=== PATIENT | male | born 1990 | race African-American/Black ===

== ENCOUNTER 2023-09-02 06:20 | Emergency (ER) | payer OTHER, SELFPAY ==
--- NOTE | ~2023-09-02 | XR_ITS ---
EXAMINATION: XR FOOT, RIGHT CLINICAL INFORMATION: Pain COMPARISON: None available. TECHNIQUE: AP, lateral, and oblique views of the right foot. FINDINGS: Negative for acute fracture or dislocation. XR/XR foot RT 2V IMPRESSION: There is bony density in the region of the arrow pointing to the region of pain and there is some bony prominence here. Etiology is indeterminate. This could represent fracture fragment or a bony anomaly or sequela of previous injury versus abnormal patient position or bony lesion. Correlation recommended clinically. 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 Differential given above. Consider CT to fully evaluate
--- NOTE | ~2023-09-02 | XR_ITS ---
EXAMINATION: XR ANKLE, RIGHT CLINICAL INFORMATION: Posterior tenderness COMPARISON: None available. TECHNIQUE: AP, lateral, and mortise views of the right ankle. FINDINGS: No fracture. Alignment is anatomic. No erosions. Joint spaces are maintained. Soft tissues are normal. XR/XR ankle RT 2V IMPRESSION: Normal right ankle.
[2023-09-02 06:40] VITALS: BP 145/73; PULSE 64; RESP 16; TEMP 36.4; O2SAT 99; BMI 26.3
--- NOTE | 2023-09-02 07:16 | ED.LOWEXIN ---
HPI - Extremity Injury (Lower) General Chief Complaint: Extremity Injury, Lower Stated Complaint: fall, leg/foot inj Time Seen by Provider: 09/02/23 07:12 Source: patient Mode of arrival: ambulatory Limitations: no limitations History of Present Illness HPI Narrative: Patient is a 32-year-old male presenting to the emergency department with complaint of right posterior ankle pain. Reports that he tripped on the curb while walking into his apartment after work at 5:00 a.m. this morning. Denies any weakness, numbness, tingling. States pain radiates up to mid lower leg. Did not take any over the counter medications prior to arrival. complaint: ankle injury Onset (ago): hour(s) Injury: Right: ankle Type of Injury: unknown Place: home Severity: severe Relieving factors: rest Exacerbating factors: movement and palpation Context: fall Other symptoms: none Treatments prior to arrival: cold therapy Related Data Allergies Allergy/AdvReac Type Severity Reaction Status Date / Time amoxicillin Allergy Hives Verified 09/02/23 06:40 Review of Systems Review of Systems: As per HPI. Yes all other systems are reviewed and are negative Constitutional: Constitutional: Reports as per HPI [facility] Social History Social History Alcohol intake: current Alcohol intake frequency: holidays/special occasions only Smoked in Last 30 Days: Yes Use of substances other than those prescribed or required for medical reasons: Yes Substance Use Type: Marijuana Substance Use Frequency: Daily Last Used Substance: Just Prior to Admission Advance Directives: No Advance Directives Information Provided: No Physical Exam Vital Signs: Vital Signs: Last Vital Signs Temp 97.5 F 09/02/23 06:40 Pulse 64 09/02/23 06:40 Resp 16 09/02/23 06:40 BP 145/73 H 09/02/23 06:40 Pulse Ox 99 09/02/23 06:40 O2 Del Method Room Air 09/02/23 06:40 BMI result Body Mass Index 26.3 Vital signs have been reviewed and appear to be correct. Blood pressure mildly elevated. Heart rate normal. Respiratory rate normal. Temperature normal. Oxygen saturation normal. Const: General: cooperative, healthy appearing and no acute distress Orientation/consciousness: oriented to person, oriented to place, oriented to time and patient oriented x3 Limitations: no limitations HEENT: Head: Yes normocephalic and Yes atraumatic Ears: external ears normal General nose exam: Normal external nose present Face and sinus: Yes face symmetric Mouth: oropharynx normal and moist mucous membranes Throat: Yes uvula midline Eyes: Pupils: Equal, round and reactive pupils present Neck: Neck: Yes normal visual inspection and Yes supple Resp: Effort & Inspection: normal respiratory effort and able to speak in complete sentences Auscultation: clear to auscultation bilaterally Cardio: Rate: regular rate Rhythm: regular rhythm Heart sounds: S1 normal heart sound present and S2 normal heart sound present GI: Palpation (GI): Soft to palpation and nontender Auscultation: normoactive bowel sounds : General: Yes no CVA tenderness Back/Spine/Pelvis: Back: no CVA tenderness Skin: General skin exam: elasticity normal and turgor normal Neuro: General: oriented to person, oriented to place, oriented to time, patient oriented x3, moves all extremities, no focal motor deficits and CN's II-XI intact bilaterally Cranial nerves: Yes Equal, round and reactive pupils present Cognition (Neuro): normal cognition Extrem: General: Yes full ROM, Yes no pedal edema and Yes no calf tenderness Right lower extremity: ankle Details: normal to inspection, tenderness Location: of the achilles tendon, normal ROM and achilles tendon exam abnormal Details: tenderness to palpation of achilles tendon; no step-off noted and Rizzo Test normal; no swelling, no unusual warmth, no ecchymosis and no crepitus and foot Details: normal capillary refill, normal to inspection, toes with normal ROM, vascular exam Details: dorsalis pedis pulse present and posterior tibial pulse present and motor-sensory exam Details: light-touch normal; no tenderness, no unusual warmth and no ecchymosis Psych: Mental Status: mental status grossly normal Affect: normal affect Thought process: Normal thought process present Medications Administered Discontinued Medications Generic Name Dose Route Start Last Admin Trade Name Freq PRN Reason Stop Dose Admin Acetaminophen 975 mg 09/02/23 07:21 09/02/23 07:34 Acetaminophen 325 Mg Tablet PO 09/02/23 07:22 975 mg ONCE ONE Administration Ibuprofen 600 mg 09/02/23 07:21 09/02/23 07:35 Ibuprofen 600 Mg Tablet PO 09/02/23 07:22 600 mg ONCE ONE Administration Medical Decision Making Medical Decision Making MDM Narrative: Patient is a 32-year-old male presenting to the emergency department with complaint of right posterior ankle pain. On exam patient is awake, A+Ox3, VS WNL, afebrile, normal neurological exam without focal deficits, physical exam findings as above. Given reported symptoms and physical exam findings, initial differential includes right ankle strain, sprain, fracture. Unlikely achilles tendon rupture. X-ray foot and ankle notable for no acute fracture. My interpretation is in agreement with the radiologist's interpretation. Will place patient in stirrup splint, and provide crutches with crutch teaching. Will refer to ortho further evaluation and management. Advised patient to alternate Tylenol ibuprofen, elevate foot at rest and apply ice intermittently. Return precautions discussed. Patient verbalized understanding of and agreement with plan. Differential Diagnosis Differential Diagnoses: The differential diagnosis associated with the presentation includes As per MDM. Independent Interpretation I performed an independent interpretation of an: Plain X-Ray Interpretation: No evidence of acute right ankle fracture Radiology Impression Discussion of test interpretation with radiology: I have reviewed the radiologist's reading. Radiologist Impression: XR/XR ankle RT 2V IMPRESSION: Normal right ankle. XR/XR foot RT 2V IMPRESSION: There is bony density in the region of the arrow pointing to the region of pain and there is some bony prominence here. Etiology is indeterminate. This could represent fracture fragment or a bony anomaly or sequela of previous injury versus abnormal patient position or bony lesion. Correlation recommended clinically. 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 Differential given above. Consider CT to fully evaluate External Record Review External record reviewed: Inpatient record, Office record and Outpatient record Discharge Plan Discharge Clinical Impression: Ankle sprain and strain Patient Disposition: Home, Self-Care Instructions: Ankle Sprain (DC), Crutch Instructions (ED), Ankle Stirrup Splint (ED), R.I.C.E. Treatment (ED) Additional Instructions: You have been evaluated in the emergency department today for ankle pain. Your evaluation did not find evidence of medical conditions requiring emergent intervention at this time. We have provided a splint and crutches for you to use while your ankle heals. Please rest, ice, and elevate your ankle, and resume normal activities as tolerated. You are being referred to orthopedics for further evaluation and management, please call their office to schedule an appointment. We recommend you take 600mg ibuprofen every 6 hours or 650mg Tylenol every 6 hours as needed for pain. If needed you can alternate these medications as they take 1 medication every 3 hours. For instance at noon take ibuprofen, then at 3:00 p.m. take Tylenol, then at 6:00 p.m. take ibuprofen. Please schedule an appointment for follow-up with your primary care provider this week. Return to the emergency department if you experience worsening pain, numbness, tingling, change of color in your foot, or any other concerning symptoms. Referrals: [facility] [Provider Group] Stand Alone Forms: Work/School Release
[2023-09-02] MEDS: Acetaminophen 325 MG TABLET 975 MG PO (07:34)
[2023-09-02] MEDS: Ibuprofen 600 MG TABLET PO (07:35)
[2023-09-02 08:36] VITALS: BP 115/53; PULSE 86; RESP 14; TEMP 36.9; O2SAT 98
== END 2023-09-02 09:10 | disposition home or self-care (01) ==
PROVIDERS: Emergency Provider Emergency Medicine
DX: S93.401A Sprain of unspecified ligament of right ankle, initial encounter (principal); S96.911A Strain of unspecified muscle and tendon at ankle and foot level, right foot, initial encounter; W10.1XXA Fall (on)(from) sidewalk curb, initial encounter; Y93.01 Activity, walking, marching and hiking; Y92.480 Sidewalk as the place of occurrence of the external cause; Y99.9 Unspecified external cause status
CPT/HCPCS: 73600; 73620; 99283; 99284

== ENCOUNTER 2023-10-16 07:57 | Emergency (ER) | payer OTHER, SELFPAY ==
[2023-10-16 07:58] VITALS: BP 166/86; PULSE 97; RESP 18; TEMP 36.5; O2SAT 99; BMI 27.1
--- NOTE | 2023-10-16 08:20 | PC.NURSE ---
a&ox4. vss and up to date. nsr on the media monitor. pt presents to the ED w/ priapism x 4 hours. pt verbalizes using OTC medication to induce erection last tuesday. pt states having sexual relations w/ same partner all week and has not had any issue until this morning. pt seemingly anxious. pt spoke w/ ED provider in regards to future plans at this time. plan of care ongoing.
--- NOTE | 2023-10-16 08:34 | ED_ITS ---
HPI - Male Genitourinary General Chief complaint: Urogenital-Male Stated complaint: Genital issues Time Seen by Provider: 10/16/23 08:14 Source: patient Mode of arrival: ambulatory Limitations: no limitations History of Present Illness HPI Narrative: This is a 32-year-old male presenting to the emergency department with a painful erection that started at 4 in the morning. Patient reports it is extremely hard and very painful. Patient reports that last Tuesday ( 8 days ago) he took an [id number] erectile supplement called [place] honey that has a medicine in it to help with erections. However has not taken it since. Patient denies drug use, cocaine use, psych medicine. Patient has been having sex with the same partner for the past week, unsure of STD. Related Data Allergies Allergy/AdvReac Type Severity Reaction Status Date / Time amoxicillin Allergy Hives Verified 09/02/23 06:40 Review of Systems Review of Systems: Yes all other systems are reviewed and are negative PMFSH Past Medical History Attestation statement: The following information was validated with the patient. Source: old records reviewed and nursing notes reviewed Social History Social History Alcohol intake: current Alcohol intake frequency: a few times a week Smoked in Last 30 Days: No Use of substances other than those prescribed or required for medical reasons: Yes Substance Use Type: Marijuana Advance Directives: No Advance Directives Information Provided: No Physical Exam Vital Signs: Vital Signs: Last Vital Signs Temp 98.5 F 10/16/23 11:16 Pulse 74 10/16/23 11:16 Resp 18 10/16/23 11:16 BP 134/80 10/16/23 11:16 Pulse Ox 99 10/16/23 11:16 O2 Del Method Room Air 10/16/23 11:16 BMI result Body Mass Index 27.1 vss Appearance: Alert.? Oriented X3.? No acute distress.? Head: Normocephalic, atraumatic, no step-offs or deformities Eyes: Pupils equal, round and reactive to light.? CVS: Normal heart rate and rhythm.? Pulses normal.? Respiratory: No respiratory distress.? Breath sounds normal.? Abdomen: Soft and nontender.? Skin: Skin warm and dry.? Normal skin color.? Normal skin turgor.? Extremities: No lower extremity edema.? No calf ttp. 5/5 strength to bilateral upper and lower extremities Sensative exam: ( Jordi conteh at bedside) erect penis shaft much harder than the glans. Glans somewhat soft. No discoloration. Decreased sensation distally. However TTP over the majority of the shaft of the penis. Neuro: Oriented X 3.? No motor deficit.? No sensory deficit. CN 2-12 intact Course Reevaluation(s) Reevaluation #1: Urology Dr. Hines recommends 20 cc of saline w/ phenylepherine 10mg/ml (1ml) to be injected 1 cc at a time every 10-15 minutes. At bedside to explain procedure I obtained verbal consent form patient explained risks bleeding, pain, necrosis, nerve issues, sensory issues, cardiac changes w/ med he verbalizes understanding. Sheryl Friedman RN at bedside. Time out confirmed patient, procedure, dose and location of injection. 1ml of diluted phenylepharine injected w/ a 25 G needle at the 3 ocklock position 3 cm from the base of the penis into the corpus cavernosum, aspiration to confirm position --> injected the diluted phenylephrine NSR before and after the procedure no noted cardiac changes. Patient tolerated procedure well. Time: 09:35 Reevaluation #2: Patient pain free. No longer has erections Time: 09:56 Reevaluation #3: Patient feeling much better pain-free. No hematoma or abnormalities at the site. Patient's erection resolved. Soft penile shaft and glans penis. I will have him follow-up with urology. Educated him to stop using royal honey. Educated patient on diagnosis and treatment plan, answered all question, patient verbalizes understanding. At this time patient will be discharged home, advised to return with new or worsening symptoms. Educated on worrisome signs and symptoms and when to return. At this time I feel comfortable discharge home. Time: 11:22 Medications Administered Discontinued Medications Generic Name Dose Route Start Last Admin Trade Name Clive PRN Reason Stop Dose Admin Phenylephrine HCl 0 mg 10/16/23 08:19 10/16/23 09:04 Phenylephrine Hcl 10 Mg/Ml Vial INTRACAVER 10/16/23 08:20 Not Given ONCE ONE Phenylephrine HCl 0 mg 10/16/23 09:00 10/16/23 09:05 Phenylephrine Hcl 10 Mg/Ml Vial INTRACAVER 10/16/23 09:01 10 mg ONCE ONE Administration Protocol Medical Decision Making Medical Decision Making [facility] Narrative: 0805 32 year old male presents for priapism X 4 hours PE errect penis Concerns for drug induced priapism. And possible necrosis has patient's glans is much softer than the shaft. Will rule out UTI and STDs Plan at this time Urology at bedside with me to evaluate patient. Differential Diagnosis Differential Diagnoses: The differential diagnosis associated with the presentation includes Concerns for drug induced priapism. And possible necrosis has patient's glans is much softer than the shaft. Will rule out UTI and STDs Admission/Observation Consideration of admission/observation: Escalation of care including admission/observation considered possible Consult Healthcare Provider Management of the patient was discussed with: Laboratory Secretary (Urology ) Lab Data [facility] Lab Attestation statement: I reviewed the patient's lab results. Labs: Lab Results 10/16/23 Range/Units 09:50 Urine Color Yellow Urine Appearance Clear Urine pH 8.5 (5.0-9.0) Ur Specific [place] 1.020 (1.005-1.025) Urine Protein Negative (Neg-Trace) mg/dL Urine Glucose (UA) Negative (Negative) mg/dL Urine Ketones Negative (Negative) mg/dL Urine Blood Negative (Negative) Urine Nitrite Negative (Negative) Ur Leukocyte Esterase Negative (Negative) External Record Review External record reviewed: Office record and Outpatient record Prescription Management Ibuprofen every 6 hours Tylenol every 4 as needed for pain or discomfort. Not to exceed maximum daily dose as listed on packaging Chronic Conditions Patient?s care impacted by: Other (Marijuanna smoker ) Critical Care Time Critical Care Time Critical Care Time: Yes Total Critical Care Time: 60 Attestation: I attest to this time spent taking care of the patient, obtaining history, physical, reviewing labs, imaging, speaking to my attending, speaking to specialist. Discharge Plan Discharge Clinical Impression: Priapism Patient Disposition: Home, Self-Care Instructions: Priapism (ED) Additional Instructions: Take your medications as prescribed. If you were prescribed antibiotics today, it is important that you take your medication to their entirety, do not skip any doses, do not finish them early. Follow-up with your primary care provider this week. Return to the emergency department with new or worsening symptoms. Such as fevers, chills, chest pain, shortness of breath, nausea, vomiting, dizziness, headache, vision changes, lethargy In case of emergency call 911 Ibuprofen every 6 hours Tylenol every 4 as needed for pain or discomfort. Not to exceed maximum daily dose as listed on packaging Referrals: [facility] [Provider Group] - 1 week Physician,None [Primary Care Provider] - 2 days
[2023-10-16 08:47] VITALS: BP 145/79; PULSE 88; RESP 18; TEMP 37.1; O2SAT 98
--- NOTE | 2023-10-16 08:59 | PM.UROCN ---
History of Present Illness Consult details Consult date: 10/16/23 Narrative: CC: Priapism Priapism lasting since 04:00 On examination has priapism of bilateral corpora Soft glans Reports using royal jelly product Likely laced with pharmaceuticals Recommend corporal aspiration to check blood gas for confirmation Injection of phenylephrine 500 mcg Q 15 minute Review of Systems Constitutional: Constitutional: Reports as per HPI and Reports no additional constitutional complaints Cardiovascular: Cardiovascular: Reports as per HPI and Reports no additional cardiovascular complaints Respiratory: Respiratory: Reports as per HPI and Reports no additional respiratory complaints Gastrointestinal: Gastrointestinal: Reports as per HPI and Reports no additional gastrointestinal complaints Genitourinary: Genitourinary: Reports as per HPI Musculoskeletal: Musculoskeletal: Reports no additional musculoskeletal complaints and Reports as per HPI Neurologic: Reports system reviewed and no additional complaints, except as documented and Reports as per HPI [facility] Social History Social History Alcohol intake: current Alcohol intake frequency: a few times a week Smoked in Last 30 Days: No Use of substances other than those prescribed or required for medical reasons: Yes Substance Use Type: Marijuana Advance Directives: No Advance Directives Information Provided: No Meds Allergies Allergy/AdvReac Type Severity Reaction Status Date / Time amoxicillin Allergy Hives Verified 09/02/23 06:40 Active Medications: Current Medications Phenylephrine HCl (Phenylephrine Hcl 10 Mg/Ml Vial) 0 mg INTRACAVER ONCE ONE; Protocol Stop: 10/16/23 09:01 Physical Exam Vital Signs: Vital Signs: Last Vital Signs Temp 98.7 F 10/16/23 08:47 Pulse 88 10/16/23 08:47 Resp 18 10/16/23 08:47 BP 145/79 H 10/16/23 08:47 Pulse Ox 98 10/16/23 08:47 O2 Del Method Room Air 10/16/23 08:47 BMI result Body Mass Index 27.1 Const: General: cooperative, healthy appearing, comfortable and no acute distress Orientation/consciousness: patient oriented x3 HEENT: Face and sinus: Yes normal facial exam Mouth: moist mucous membranes Neck: Neck: Yes normal visual inspection, Yes full ROM and Yes trachea midline Chest: Chest palpation & inspection: normal inspection of the chest Resp: Effort & Inspection: normal respiratory effort, able to speak in complete sentences and no respiratory distress GI: Inspection: Yes normal to inspection Back/Spine/Pelvis: Cervical Spine: normal cervical lordosis Thoracic/Lumbar Spine: thoracic and lumbar spine normal to inspection Skin: General skin exam: no rashes or lesions noted Neuro: General: patient oriented x3, tone normal and moves all extremities Extrem: General: Yes normal to inspection and Yes capillary refill normal Results Labs Labs: All other labs normal. Assessment and Plan (1) Priapism: Status: Acute Plan Initial therapy injection of vaso-constricting medication Procedures Date of Service Date of Service: 10/16/23
[2023-10-16 09:05] VITALS: BP 109/87; PULSE 87
[2023-10-16] MEDS: Phenylephrine HCL 10 MG/ML VIAL INTRACAVER (09:05)
--- NOTE | 2023-10-16 09:05 | PC.NURSE ---
1st dose of phenylephrine administered per julisa FAROOQ at this time. sinus tachy on the roller repairer 100-110bpm. pt tolerated well.
--- NOTE | 2023-10-16 09:16 | PC.NURSE ---
penile erection subsided post 1st dose of medication administration. pt remains nsr on the surveillance system monitor. respirations remain even and unlabored. call ricks placed within reach.
[2023-10-16 09:36] VITALS: BP 126/66; PULSE 71; RESP 14; TEMP 36.9; O2SAT 96
--- NOTE | 2023-10-16 09:41 | PC.NURSE ---
pt ambulates to the restroom w/ a strong/steady gait independently. urine sample/obtained and sent to the lab. pt able to urinate without complications. denies pain/hematuria/discharge/etc. pt states he is feeling much better at this time. respirations remain even and unlabored. call ricks placed within reach.
[2023-10-16 09:58] LABS: Appearance Urine Clear; Color Urine Yellow; Glucose Urine UA Negative (Negative); Leukocyte Esterase Urine Negative (Negative); Nitrite Urine Negative (Negative); PH 8.5 (5.0-9.0); Urine Blood Negative (Negative); Urine Ketones Negative (Negative); Urine Protein Negative (Neg-Trace)
[2023-10-16 11:16] VITALS: BP 134/80; PULSE 74; RESP 18; TEMP 36.9; O2SAT 99
== END 2023-10-16 11:38 | disposition home or self-care (01) ==
PROVIDERS: Physician Assistant; Emergency Provider Student in an Organized Health Care Education/Training Program
DX: N48.30 Priapism, unspecified (principal); N48.89 Other specified disorders of penis
CPT/HCPCS: 81003; 99284; J2371

== ENCOUNTER → 2023-10-16 08:27 | Outpatient (BNV) | payer OTHER, SELFPAY | PROVIDERS: Visit Provider Urology | DX: N48.30 Priapism, unspecified (principal) | CPT/HCPCS: 99284 ==

== ENCOUNTER 2024-03-22 11:10 | Emergency (ER) | payer OTHER, SELFPAY ==
--- NOTE | ~2024-03-22 | US_ITS ---
EXAMINATION: US SCROTUM CLINICAL INFORMATION: Right testicle is red and swollen. COMPARISON: None available. TECHNIQUE: A sonogram of the scrotum was performed assessing dash-scale appearance and color Doppler flow. Spectral Doppler analysis of the arterial and venous flow were performed in the testes bilaterally. FINDINGS: RIGHT: Right testicle measures 4.5 x 2.4 x 3.0 cm, volume 16.6 mL. No focal testicular parenchymal lesions are visualized. A single tiny punctate calcific foci is present. Spectral Doppler analysis of the arterial and venous flow is slightly increased in the right testis. Right epididymal head is normal in size. No right hydrocele or varicocele is seen. Right epididymal Doppler flow is increased. LEFT: Left testicle measures 4.1 x 1.8 x 2.6 cm, volume 10.4 mL. No focal testicular parenchymal lesions are visualized. Spectral Doppler analysis of the arterial and venous flow is mildly increased in the left testis. Left epididymal head is normal in size. No left hydrocele or varicocele is seen. Left epididymal Doppler flow is normal. US/US scrotum doppler IMPRESSION: Increased flow in the right testis and epididymis with mildly increased flow in the left testis. Findings are suggestive of mild epididymoorchitis.
--- NOTE | ~2024-03-22 | US_ITS ---
EXAMINATION: US SCROTUM CLINICAL INFORMATION: Right testicle is red and swollen. COMPARISON: None available. TECHNIQUE: A sonogram of the scrotum was performed assessing dash-scale appearance and color Doppler flow. Spectral Doppler analysis of the arterial and venous flow were performed in the testes bilaterally. FINDINGS: RIGHT: Right testicle measures 4.5 x 2.4 x 3.0 cm, volume 16.6 mL. No focal testicular parenchymal lesions are visualized. A single tiny punctate calcific foci is present. Spectral Doppler analysis of the arterial and venous flow is slightly increased in the right testis. Right epididymal head is normal in size. No right hydrocele or varicocele is seen. Right epididymal Doppler flow is increased. LEFT: Left testicle measures 4.1 x 1.8 x 2.6 cm, volume 10.4 mL. No focal testicular parenchymal lesions are visualized. Spectral Doppler analysis of the arterial and venous flow is mildly increased in the left testis. Left epididymal head is normal in size. No left hydrocele or varicocele is seen. Left epididymal Doppler flow is normal. US/US scrotum IMPRESSION: Increased flow in the right testis and epididymis with mildly increased flow in the left testis. Findings are suggestive of mild epididymoorchitis.
[2024-03-22 11:53] VITALS: BP 135/78; PULSE 74; RESP 16; TEMP 36.8; O2SAT 97; BMI 26.5
--- NOTE | 2024-03-22 11:53 | ED.MALEGU ---
HPI - Male Genitourinary General Chief complaint: Urogenital-Male Stated complaint: groin area issues Time Seen by Provider: 03/22/24 12:22 Source: patient Mode of arrival: ambulatory Limitations: no limitations History of Present Illness ED Provider: Cesar Man PA-C HPI Narrative: 33 yo male presents to the ER for evaluation of right testicular swelling for the last 1 day. Patient states about 4 days ago he had an ingrown hair on the right testicle that he popped at home, draining some purulent material and blood from the area. He states it started to heal but then he noticed some swelling in the right testicle yesterday when he was at work. He reports it is tender to touch. He denies any redness or rash to the area. No penile drainage. No pain with urination. He is not diabetic. No fever or chills. MD Complaint: testicle pain and testicle swelling Onset (ago): day(s) (1) Duration: constant Radiation: right testicle Severity: moderate Quality: aching Relieving factors: none Exacerbating factors: palpation Associated symptoms: Reports swelling and mass Related Data Sexually active: Yes (Same partner) Previous Rx's ?Medication ?Instructions ?Recorded doxycycline hyclate 100 mg tablet 100 mg PO BID #19 tabs 03/22/24 Allergies Allergy/AdvReac Type Severity Reaction Status Date / Time amoxicillin Allergy Hives Verified 03/22/24 11:55 Review of Systems Review of Systems: Yes all other systems are reviewed and are negative [facility] Social History Social History Alcohol intake: current Alcohol intake frequency: a few times a week Substance Use Type: Marijuana Advance Directives: No Physical Exam Vital Signs: Vital Signs: Last Vital Signs Temp 98.3 F 03/22/24 15:17 Pulse 74 03/22/24 15:17 Resp 16 03/22/24 15:17 BP 135/78 03/22/24 15:17 Pulse Ox 97 03/22/24 15:17 O2 Del Method Room Air 03/22/24 15:17 BMI result Body Mass Index 26.5 Appearance: Alert. Oriented X3. No acute distress. HEENT: Normal external inspection Neck: Normal inspection. CVS: Normal heart rate and rhythm. Pulses normal. Respiratory: No respiratory distress. Breath sounds normal. Abdomen: Soft and nontender. +BS x4 : Normal inspection of the penis, uncircumcised, no urethral meatus discharge. Normal inspection of the scrotum with a small, less than 1 cm area of swelling around the hair follicle with mild erythema, no fluctuation or induration. Right epididymis is swollen and tender, nontender testicles bilaterally Skin: Skin warm and dry. Normal skin color. Normal skin turgor. No rashes. Extremities: No lower extremity edema. No joint swelling. Neuro/psych: Oriented X 3. Grossly normal, nonfocal Course Course Course Narrative: This is a Rapid Medical Examination (RME) performed by Neris Kline PA-C in triage. Full HPI, ROS, assessment and treatment plan per primary provider in the Main ED. 33 yo male here for eval of right testicular swelling x 24 hours. reports plucking an ingrown hair on the testicle 3-4 days ago. began to noticed swelling, redness, warmth to the testicle last night, pain now spreading to thigh. no fever/ chills, dysuria, penile discharge. + area not examined in triage Plan: labs, UA, ultrasound Medications Administered Discontinued Medications Generic Name Dose Route Start Last Admin Trade Name Freq PRN Reason Stop Dose Admin Ceftriaxone Sodium 500 mg/ 0 mg 03/22/24 14:28 03/22/24 14:42 Lidocaine HCl 1 ml IM 03/22/24 14:29 1 kit ONCE ONE Administration Doxycycline Monohydrate 100 mg 03/22/24 14:28 03/22/24 14:42 Doxycycline Monohydrate 100 Mg Capsule PO 03/22/24 14:29 100 mg ONCE ONE Administration Medical Decision Making Medical Decision Making [facility] Narrative: 33-year-old male presents to the ER for evaluation of right testicular swelling and pain after he had an ingrown hair 4 days ago. Exam is consistent with a tender and swollen epididymis on the right side. No evidence of cellulitis. He is not diabetic, no evidence of Heide gangrene. Has a mild single folliculitis with no purulent drainage. Ultrasound of the testicles today showed mild epididymoorchitis. His UA is negative for infection. His lab work showed no leukocytosis. He denies any urethral discharge. He has been sexually active with the same partner, low suspicion for STIs. Given his age will treat for possible gonorrhea and chlamydia. IM Rocephin given here and will prescribe 10 days of doxycycline. Patient counseled on diagnosis, treatment, management and return precautions. Stable for discharge home Differential Diagnosis Differential Diagnoses: The differential diagnosis associated with the presentation includes Folliculitis, epididymitis, orchitis, epididymoorchitis, chlamydia, gonorrhea, UTI, Heide gangrene Lab Data MDM Lab Attestation statement: I reviewed the patient's lab results. No leukocytosis, urinalysis negative for infection 03/22/24 13:21 03/22/24 13:21 Labs: Lab Results 03/22/24 Range/Units 13:21 WBC 8.7 (4.8-10.8) X10*3/uL RBC 5.33 (4.60-5.80) X10*6/uL Hgb 16.1 (14.0-18.0) g/dl Hct 45.8 (42.0-52.0) % MCV 85.9 (80.0-98.0) fL MCH 30.2 (27.0-33.0) pg MCHC 35.2 (31.0-36.0) g/dl RDW 12.2 (11.0-16.0) % Plt Count 314 (160-400) X10*3/uL MPV 8.8 L (9.4-12.4) fL Immature Gran % (Auto) 0.3 (0.0-0.4) % Neut % (Auto) 60.7 (45-73) % Lymph % (Auto) 28.0 (20-40) % [place] % (Auto) 9.0 (2-11) % Eos % (Auto) 1.8 (0-4) % Baso % (Auto) 0.2 (0-2) % Lymph # (Auto) 2.4 (1.2-4.9) X10*3/uL [place] # (Auto) 0.8 (0.1-1.2) X10*3/uL Eos # (Auto) 0.2 (0.0-0.4) X10*3/uL Baso # (Auto) 0.0 (0.0-0.2) X10*3/uL Abs Immat Gran (auto) 0.03 (0.00-0.03) X10*3/uL Absolute Neuts (auto) 5.3 (2.0-8.3) x10*3/uL Absolute Nucleated RBC 0.000 (0.0-0.012) X10*3/uL Nucleated RBC % (auto) 0.0 (0.0-0.2) /100WBC Sodium 138 (135-145) mmol/L Potassium 3.9 (3.3-5.1) mmol/L Chloride 106 (96-108) mmol/L Carbon Dioxide 26 (22-29) mmol/L Anion Gap 10 L (12-20) BUN 9 (9-16) mg/dL Creatinine 1.02 (0.5-1.4) mg/dL Estim Creat Clear Calc 108.3 Estimated GFR > 60 Random Glucose 86 (60-115) mg/dL Calcium 9.6 (8.4-10.2) mg/dL Magnesium 2.3 (1.6-2.6) mg/dL Total Bilirubin 1.0 (0.0-1.0) mg/dL AST 17 (5-37) U/L ALT 40 (0-40) U/L Alkaline Phosphatase 61 (39-117) U/L Total Protein 7.5 (6.5-8.0) g/dL Albumin 4.3 (3.5-5.0) g/dL Urine Color Yellow Urine Appearance Clear Urine pH 6.5 (5.0-9.0) Ur Specific [place] 1.010 (1.005-1.025) Urine Protein Negative (Neg-Trace) mg/dL Urine Glucose (UA) Negative (Negative) mg/dL Urine Ketones Negative (Negative) mg/dL Urine Blood Negative (Negative) Urine Nitrite Negative (Negative) Ur Leukocyte Esterase Negative (Negative) Independent Interpretation I performed an independent interpretation of an: Ultrasound Interpretation: No evidence of torsion, agrees radiology read Radiology Impression Discussion of test interpretation with radiology: I have reviewed the radiologist's reading. Radiologist Impression: EXAMINATION: US SCROTUM CLINICAL INFORMATION: Right testicle is red and swollen. COMPARISON: None available. TECHNIQUE: A sonogram of the scrotum was performed assessing dash-scale appearance and color Doppler flow. Spectral Doppler analysis of the arterial and venous flow were performed in the testes bilaterally. FINDINGS: RIGHT: Right testicle measures 4.5 x 2.4 x 3.0 cm, volume 16.6 mL. No focal testicular parenchymal lesions are visualized. A single tiny punctate calcific foci is present. Spectral Doppler analysis of the arterial and venous flow is slightly increased in the right testis. Right epididymal head is normal in size. No right hydrocele or varicocele is seen. Right epididymal Doppler flow is increased. LEFT: Left testicle measures 4.1 x 1.8 x 2.6 cm, volume 10.4 mL. No focal testicular parenchymal lesions are visualized. Spectral Doppler analysis of the arterial and venous flow is mildly increased in the left testis. Left epididymal head is normal in size. No left hydrocele or varicocele is seen. Left epididymal Doppler flow is normal. US/US scrotum IMPRESSION: Increased flow in the right testis and epididymis with mildly increased flow in the left testis. Findings are suggestive of mild epididymoorchitis. Prescription Management I considered prescription management with: Pain Medication and Antibiotic Critical Care Time Critical Care Time Critical Care Time: No Discharge Plan Discharge Clinical Impression: Acute epididymo-orchitis Patient Disposition: Home, Self-Care Instructions: Epididymo-Orchitis (ED) Additional Instructions: Your lab workup today was unremarkable. Your urinalysis was negative for acute infection. Your ultrasound today showed increase blood flow to the right testicle and epididymis suggestive of mild epididymo-orchitis Take the prescribed antibiotics as directed, complete the entire course and do not miss any doses Take antibiotic with food. Do not go out in the direct sunlight, you will get a rash while on this antibiotic. If you develop new or worsening symptoms call 911 or come back to the ER for further evaluation. Prescriptions: New doxycycline hyclate 100 mg tablet 100 mg PO BID Qty: 19 0RF Stand Alone Forms: Work/School Release Interventions: ED Discharge Assessment Last Done: 03/22/24 15:17 Discharge Date/Time: 03/22/24 15:17 Print Language: Hebrew
[2024-03-22 13:43] LABS: MANUAL DIFF FLAG NO
[2024-03-22 13:48] LABS: Appearance Urine Clear; Color Urine Yellow; Glucose Urine UA Negative (Negative); Leukocyte Esterase Urine Negative (Negative); Nitrite Urine Negative (Negative); PH 6.5 (5.0-9.0); Urine Blood Negative (Negative); Urine Ketones Negative (Negative); Urine Protein Negative (Neg-Trace)
[2024-03-22 13:49] LABS: Basophils Percent Auto 0.2 % (0-2); Eosinophils Absolute Auto 0.2 X10*3/uL (0.0-0.4); Eosinophils Percent Auto 1.8 % (0-4); Hematocrit 45.8 % (42.0-52.0); Hemoglobin 16.1 g/dl (14.0-18.0); Imm Gran Abs Auto 0.03 X10*3/uL (0.00-0.03); Imm Gran Pct Auto 0.3 % (0.0-0.4); Lymphocytes Absolute Auto 2.4 X10*3/uL (1.2-4.9); Mean Corpuscular HGB Conc 35.2 g/dl (31.0-36.0); Mean Corpuscular Hemoglobin 30.2 pg (27.0-33.0); Mean Corpuscular Volume 85.9 fL (80.0-98.0); Mean Platelet Volume 8.8 fL (9.4-12.4); Monocytes Absolute Auto 0.8 X10*3/uL (0.1-1.2); Neutrophils Absolute Auto 5.3 x10*3/uL (2.0-8.3); Neutrophils Percent Auto 60.7 % (45-73); Platelet Count 314 X10*3/uL (160-400); Red Blood Count 5.33 X10*6/uL (4.60-5.80); Red Cell Distribution Width 12.2 % (11.0-16.0); White Blood Count 8.7 X10*3/uL (4.8-10.8)
[2024-03-22 14:10] LABS: Alanine Aminotransferase 40 U/L (0-40); Albumin Level 4.3 g/dL (3.5-5.0); Alkaline Phosphatase 61 U/L (39-117); Anion Gap 10 (12-20); Aspartate Amino Transferase 17 U/L (5-37); Blood Urea Nitrogen 9 mg/dL (9-16); Calcium 9.6 mg/dL (8.4-10.2); Carbon Dioxide 26 mmol/L (22-29); Chloride 106 mmol/L (96-108); Creatinine Clr Calc Pharmacy 108.3; Estimated Glomerular Filt Rate > 60; Glucose Random 86 mg/dL (60-115); Magnesium 2.3 mg/dL (1.6-2.6); Potassium 3.9 mmol/L (3.3-5.1); Sodium 138 mmol/L (135-145); Total Protein 7.5 g/dL (6.5-8.0)
[2024-03-22] MEDS: cefTRIAXone sodium 500 MG, Lidocaine HCl 1 % MPF 1 ML IM (14:42)
[2024-03-22] MEDS: Doxycycline Monohydrate 100 MG CAPSULE PO (14:42)
[2024-03-22 15:17] VITALS: BP 135/78; PULSE 74; RESP 16; TEMP 36.8; O2SAT 97
[2024-03-22 15:53] LABS: CT PCR NOT DETECTED (Not Detect.); NG PCR NOT DETECTED (Not Detect.)
== END 2024-03-22 15:17 | disposition home or self-care (01) ==
PROVIDERS: Physician Assistant Medical; Emergency Provider Student in an Organized Health Care Education/Training Program
DX: N45.3 Epididymo-orchitis (principal); N50.811 Right testicular pain; N50.89 Other specified disorders of the male genital organs
CPT/HCPCS: 36415; 76870; 80053; 81003; 83735; 85025; 87491; 87591; 93975; 96372; 99282; 99284; J0696

== ENCOUNTER 2024-04-27 11:07 | Outpatient (AMB) | payer OTHER, SELFPAY ==
--- NOTE | 2024-04-27 11:15 | AM.OFFWIN_ITS ---
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 pt denied any swelling. 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 He also reports a foul odor. He states that he was recently camping for about a week, and feet were frequently moist and in wet socks. [facility] Social History Alcohol intake: current Alcohol intake frequency: a few times a week Patient Tobacco Use Status: Current everyday Tobacco user Substance Use Type: Marijuana Review of Systems Const All systems reviewed & are unremarkable except as noted in HPI and below Physical Exam Vital Signs: Last Vital Signs Pulse 78 04/27/24 11:18 BP 122/78 04/27/24 11:18 Pulse Ox 98 04/27/24 11:18 Oxygen Delivery Method Room Air 04/27/24 11:18 BMI result Body Mass Index 27.4 Const General: cooperative, healthy appearing and no acute distress Resp Effort & Inspection: normal respiratory effort Skin Other: Erythematous plantar aspects of bilateral feet and in between toes. No open areas, no blisters, patient reports itching and mild tenderness. Foul odor noted. Extrem General: Yes capillary refill normal and Yes no clubbing, cyanosis or edema Psych Appearance: grossly normal Mental Status: mental status grossly normal Speech and movement: Normal speech and movement present Assessment & Plan Assessment & Plan (1) Tinea pedis: Code(s): B35.3 - Tinea pedis Qualifiers: Laterality: bilateral Qualified Code(s): B35.3 - Tinea pedis Plan: Will start on clotrimazole cream b.i.d.. Reviewed proper use of this, and advised to continue use until 1 week after resolution of his symptoms. Reviewed ways to prevent athlete's foot, including keeping feet clean/dry, drying thoroughly between toes, not wearing wet socks or shoes. He is going to try to wear more open shoes while this resolves. Also advised he utilize some [id number] athlete's foot spray for his work boots. If he does not improve with treatment, or symptoms worsen, he can return to the clinic for further evaluation. He verbalizes understanding and agrees to plan. Work note provided. Medications: New clotrimazole 1% Apply to feet twice a day until 1 week after symptoms resolve. 1 appl topical BID 4 weeks 45 grams 3RF B35.3 - Tinea pedis Discontinued doxycycline hyclate Discontinued Reason: Patient no longer taking 100 mg PO BID 19 tabs 0RF Coding Level of Care Code Est Pt Level 4 (29845) Diagnoses Tinea pedis of both feet B35.3 Laterality: bilateral
[2024-04-27 11:18] VITALS: BP 122/78; PULSE 78; O2SAT 98; BMI 27.4
== END 2024-04-27 12:01 | disposition home or self-care (01) ==
PROVIDERS: Visit Provider Nurse Practitioner Family
DX: B35.3 Tinea pedis (principal)
CPT/HCPCS: 99214

== ENCOUNTER 2024-06-26 14:20 | Outpatient (AMB) | payer OTHER, SELFPAY ==
--- NOTE | 2024-06-26 14:34 | AM.OFFWIN_ITS ---
Intake Vital Signs 06/26/24 14:36 Height 5 ft 10 in Weight 192 lb BMI 27.5 BP 130/80 Blood Pressure Location Rt brachial Position Sitting Pulse 81 Pulse Source Pulse Oximeter Pulse Oximetry (%) 98 Oxygen Delivery Method Room Air Intake Visit Reasons: EP-lt arm pain and rt wrist pain Intake Note: Patient here for right wrist pain burning sensation that started yesterday and has been having some numbness. Patient Tobacco Use Status: Current everyday Tobacco user Allergies amoxicillin Allergy (Verified 04/27/24 11:19) Hives Do you need a note to return to daycare/school/sports/work: Yes HPI HPI Comments History of Present Illness Details 33 y/o male patient who presents to the walk in clinic with c/o numbness and tingling right hand wrist since this morning. Denies injury or trauma. [facility] Social History Alcohol intake: current Alcohol intake frequency: a few times a week Patient Tobacco Use Status: Current everyday Tobacco user Substance Use Type: Marijuana Review of Systems Const All systems reviewed & are unremarkable except as noted in HPI and below Physical Exam Vital Signs: Last Vital Signs Pulse 81 06/26/24 14:36 BP 130/80 06/26/24 14:36 Pulse Ox 98 06/26/24 14:36 Oxygen Delivery Method Room Air 06/26/24 14:36 BMI result Body Mass Index 27.5 Const General: cooperative and no acute distress Orientation/consciousness: patient oriented x3 Neuro General: patient oriented x3, gait normal and moves all extremities Extrem Right upper extremity: wrist (limited ROM due to pain) Details: normal to inspection, tenderness, radial pulse present and ulnar pulse present; no swelling and no deformity and Extremity exam: right hand Details: normal capillary refill, neuromotor exam normal, neurosensory exam abnormal Details: radial nerve sensory function normal Details: decreased light touch sensation, ulnar nerve sensory function normal Details: decreased light touch sensation and median nerve sensory function normal Details: decreased light touch sensation and no swelling Left upper extremity: normal to inspection and full ROM Assessment & Plan Assessment & Plan (1) Neuropathy of right ulnar nerve at wrist: Code(s): G56.21 - Lesion of ulnar nerve, right upper limb Plan: Wrist/Hand Brace Advised to f/u with PCP for EMG testing. Huber test positive on right hand. NSAIDs for pain relief. Medications: New cyclobenzaprine 10 mg PO BEDTIME 14 tabs 0RF G56.21 - Lesion of ulnar nerve, right upper limb Coding Level of Care Code Est Pt Level 3 (15911) Diagnoses Neuropathy of right ulnar nerve at wrist G56.21 Time Spent (min) 15
[2024-06-26 14:36] VITALS: BP 130/80; PULSE 81; O2SAT 98; BMI 27.5
== END 2024-06-26 15:32 | disposition home or self-care (01) ==
PROVIDERS: Visit Provider Nurse Practitioner Family
DX: G56.21 Lesion of ulnar nerve, right upper limb (principal)

== ENCOUNTER → 2024-06-26 14:20 | Outpatient (BNVA) | payer OTHER, SELFPAY | PROVIDERS: Visit Provider Nurse Practitioner Family ==

== ENCOUNTER 2024-09-08 21:04 | Emergency (ER) | payer OTHER, SELFPAY ==
--- NOTE | ~2024-09-08 | XR_ITS ---
CLINICAL HISTORY: shoulder dislocated 2 view left shoulder Comparison: None Findings: Anterior inferior dislocation of the left glenohumeral joint. No displaced fracture by two-view radiograph. Anatomic alignment of the left AC joint is maintained. No radiopaque foreign body. Mild atelectasis in the [id number]. IMPRESSION: Anterior dislocation of the left glenohumeral joint. This document has been electronically signed by: Ramon Han MD on 09/08/2024 21:53:57
--- NOTE | ~2024-09-08 | XR_ITS ---
CLINICAL HISTORY: shoulder reduction 1 view left shoulder Comparison: X-rays of the left shoulder from 09/08/2024 Findings: Improved and now near anatomic alignment of the left glenohumeral joint. Imaged left AC joint appears unchanged. No displaced fracture by one view radiograph. Low lung volumes with atelectasis in the [id number]. IMPRESSION: Postreduction change of the left glenohumeral joint. This document has been electronically signed by: Ramon Han MD on 09/08/2024 22:35:08
--- NOTE | 2024-09-08 21:30 | ED_ITS ---
HPI - Extremity Injury (Upper) General Chief Complaint: Extremity Injury, Upper Stated Complaint: left arm dislocated Time Seen by Provider: 09/08/24 22:05 Source: patient Mode of arrival: ambulatory Limitations: no limitations History of Present Illness ED Provider: Dr. Stacia Sorensen HPI narrative: Patient comes to the emergency room complaining of a left shoulder dislocation. Patient states that he was playing with his children and his left shoulder dislocated. Patient states that he has dislocated his left shoulder approximately 10 times in the past. Related Data Previous Rx's ?Medication ?Instructions ?Recorded cyclobenzaprine 10 mg tablet 10 mg PO BEDTIME #14 tabs 06/26/24 ibuprofen 600 mg tablet 600 mg PO Q8H PRN fever or pain 09/08/24 #30 tabs Allergies Allergy/AdvReac Type Severity Reaction Status Date / Time amoxicillin Allergy Hives Verified 09/08/24 21:35 Review of Systems Review of Systems: Constitutional : No Weight loss, No Fever, No Chills, No Night Sweats, No Fatigue, No Malaise ENT/Mouth : No Hearing loss, No Ear Pain, No Nasal Congestion, No Sinus Pain, No Hoarseness, No sore throat, No Rhinorrhea, No Swallowing Difficulty Eyes: No Eye Pain, No Swelling, No Redness, No Foreign Body, No Discharge, No Vision Changes Cardiovascular : No Chest Pain, No SOB, No Dyspnea on Exertion, No Orthopnea, No Edema, No Palpitations Respiratory : No Cough, No Sputum, No Wheezing, No Smoke Exposure, No Dyspnea Gastrointestinal : No Nausea, No Vomiting, No Diarrhea, No Constipation, No abdominal Pain, No Hematochezia, No Melena Genitourinary : no irregular bleeding, No Dysuria, No Urinary Frequency, No Hematuria, No Urinary Incontinence, No Urgency, No Flank Pain, No Urinary Flow Changes, No Hesitancy Musculoskeletal complaining of left shoulder pain/dislocation. No Myalgias, No Joint Swelling Skin : No Skin Lesions, No rash Neuro : No Weakness, No Numbness, No Paresthesias, No Loss of Consciousness, No Dizziness, No Headache Psych : No Anxiety/Panic, No Depression, No SI/HI/AH/VH, No Social Issues, Heme/Lymph: No Bruising, No Bleeding,No Lymphadenopathy Endocrine : No Polyuria, No Polydipsia, No Temperature Intolerance [facility] Social History Social History Alcohol intake: current Alcohol intake frequency: a few times a week Patient Tobacco Use Status: Current everyday Tobacco user Substance Use Type: Marijuana Advance Directives: No Advance Directives Information Provided: No Do you have a plan to hurt others: No Plan Physical Exam Vital Signs: Vital Signs: Last Vital Signs Temp 98.3 F 09/08/24 21:33 Pulse 96 09/08/24 21:33 Resp 18 09/08/24 21:33 BP 118/70 09/08/24 21:33 Pulse Ox 94 09/08/24 21:33 O2 Del Method Room Air 09/08/24 21:33 BMI result Body Mass Index 27.6 Const: Other: Appearance: Alert. Oriented X3. No acute distress. Eyes: Pupils equal, round and reactive to light. ENT: Pharynx normal. Neck: Normal inspection. Neck supple. No lymph nodes noted. No crepitus CVS: Normal heart rate and rhythm. Pulses normal. Normal S1 and S2 Respiratory: No respiratory distress. Breath sounds normal. No Wheezing. No rales Abdomen: Soft and nontender. No rigidity. No distention. Skin: Skin warm and dry. Normal skin color. Normal skin turgor. Extremities: No lower extremity edema. No Lacerations. No Rash. Left shoulder seems to be dislocated, pain to palpation around the shoulder Neuro: Oriented X 3. No motor deficit. No sensory deficit. Moving all extremities. No slurred speech. CN 2 through 12 grossly intact Psych: calm, cooperative, normal affect Course Course Course Narrative: This is a Rapid Medical Examination (RME) performed by Neris Kline PA-C in triage. Full HPI, ROS, assessment and treatment plan per primary provider in the Main ED. 33 yo male hx of multiple shoulder dislocations w/ prior shoulder surgery here w/ concern for left shoulder dislocation. 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 has been unable to relocate it. no OTC pain medication [employer]. Plan: XR, relocation Medical Decision Making Medical Decision Making MDM Narrative: My interpretation of x-ray of the shoulder: There is an anterior dislocation I discussed with the patient that we can inject lidocaine in the shoulder and attempt reduction versus conscious sedation. Patient states that he would prefer local lidocaine Patient was injected with 20 mL of 1% lidocaine without epinephrine. Patient states that his shoulder feels better/numb. The shoulder was easily reduced X-rays taken, my interpretation of x-ray: Shoulder successfully reduced Patient states that this time he feels much better. Patient has good capillary refill in all fingers on the left hand, good radial pulses Patient able to move his arm. Patient was given a sling. Differential Diagnosis Differential Diagnoses: The differential diagnosis associated with the presentation includes (Dislocated shoulder, fracture, contusion) Independent Interpretation I performed an independent interpretation of an: Plain X-Ray Radiology Impression Discussion of test interpretation with radiology: I have reviewed the radiologist's reading. Radiologist Impression: Improved and now near anatomic alignment of the left glenohumeral joint. Imaged left AC joint appears unchanged. No displaced fracture by one view radiograph. Low lung volumes with atelectasis in the [id number]. IMPRESSION: Postreduction change of the left glenohumeral joint. Critical Care Time Critical Care Time Critical Care Time: Yes Total Critical Care Time: 35 Attestation: I have personally provided critical care time. Time includes review of lab data, radiology results, discussion with consultants, and monitoring for potential decompensation. Intervention performed as documented. Discharge Plan Discharge Clinical Impression: Dislocated shoulder Patient Disposition: Home, Self-Care Instructions: Shoulder Dislocation (ED) Additional Instructions: Please follow-up with your primary care physician tomorrow. If you have any worsening or new symptoms, please return to the emergency room or call 911 Prescriptions: New ibuprofen 600 mg tablet 600 mg PO Q8H PRN (Reason: fever or pain) Qty: 30 0RF No Action cyclobenzaprine 10 mg tablet 10 mg PO BEDTIME Qty: 14 0RF Referrals: Ortega Sifuentes MD [Physician] - 09/10/24 (Recurrent left shoulder dislocation) Print Language: [place]
[2024-09-08 21:33] VITALS: BP 118/70; PULSE 96; RESP 18; TEMP 36.8; O2SAT 94; BMI 27.6
[2024-09-08 22:47] VITALS: BP 121/72; PULSE 87; RESP 16; TEMP 36.7; O2SAT 98
[2024-09-08 22:54] VITALS: BP 121/72; PULSE 87; RESP 16; TEMP 36.7; O2SAT 98
== END 2024-09-08 22:56 | disposition home or self-care (01) ==
PROVIDERS: Emergency Provider Emergency Medicine
DX: M24.412 Recurrent dislocation, left shoulder (principal); M25.512 Pain in left shoulder; F17.200 Nicotine dependence, unspecified, uncomplicated; F12.90 Cannabis use, unspecified, uncomplicated
CPT/HCPCS: 23650; 64450; 73020; 73030; 99284

== ENCOUNTER → 2024-09-08 21:30 | Outpatient (BNV) | payer OTHER, SELFPAY | PROVIDERS: Visit Provider Radiology Neuroradiology | DX: S43.005A Unspecified dislocation of left shoulder joint, initial encounter (principal) | CPT/HCPCS: 73020; 73030 ==